=== PATIENT | female | born 1970 | race Native Hawaiian/Other Pacific Islander ===

== ENCOUNTER 2016-02-16 07:02 | Emergency (ER) | payer SELFPAY ==
--- NOTE | 2016-02-16 08:25 | Emergency Department Report ---
Upper Extremity - [facility] Chief Complaint: Extremity Injury, Upper Stated Complaint: LEFT SIDE NUMBNESS/ PAINFUL TO SWALLOW Time Seen by Provider: 02/16/16 08:11 ED Review of Systems ROS: Stated complaint: LEFT SIDE NUMBNESS/ PAINFUL TO SWALLOW Other details as noted in HPI ED Past Medical Hx - Past Medical History Hx Hypertension: No Hx Heart Attack/AMI: No Hx Diabetes: No Hx Liver Disease: No Hx Renal Disease: No Hx Seizures: No Hx Asthma: No Hx COPD: No Hx Tuberculosis: No Additional medical history: history of ectopic - Surgical History Hx Cholecystectomy: Yes Hx Appendectomy: Yes Additional Surgical History: salpingectomy. . tummy tuck. - Social History Smoking Status: Never Smoker Substance Use Type: None - Medications Home Medications: Home Medications Medication Instructions Recorded Confirmed Last Taken Type Ciprofloxacin HCl [Cipro] 500 mg PO Q12H #28 tab 07/09/13 Unknown Rx HYDROcodone/APAP 5-325 [[place] 1 each PO Q6HR PRN #14 tablet 07/09/13 Unknown Rx 5-325 mg TAB] Prednisone [Prednisone 10 mg 10 mg PO .TAPER #1 tab.ds.pk 07/09/13 Unknown Rx (6-Day Pack, 21 Tabs)] metroNIDAZOLE [Flagyl TAB] 500 mg PO Q8HR #42 tablet 07/09/13 Unknown Rx Upper Extremity Exam - Exam General: Vital signs noted. No distress. Alert and acting appropriately. ED Course Vital Signs 02/16/16 07:20 Temperature 98.3 F Pulse Rate 83 Blood Pressure 138/98 Critical care attestation.: If time is entered above; I have spent that time in minutes in the direct care of this critically ill patient, excluding procedure time. ED Disposition Condition: Stable
--- NOTE | 2016-02-16 08:32 | Emergency Department Report ---
HPI - General Chief Complaint: Extremity Injury, Upper Time Seen by Provider: 02/16/16 08:11 - HPI HPI: Patient is a 45-year-old female who presents to ED complaining of left sided neck and arm pain and tingling 2 days. Patient states 2 days ago she started experiencing pain on her left neck area and subxiphoid tingling on her left arm. Patient states pain is intermittent and is a throbbing type pain. Patient also complains of midsternal, nonradiating, 6 out of 10 intensity, stuck like feeling chest pain 1 day. Patient denies fevers/chills/nausea/vomiting/chest pain/shortness of breath/ abdominal pain. ED Past Medical Hx - Past Medical History Hx Hypertension: No Hx Heart Attack/AMI: No Hx Diabetes: No Hx Liver Disease: No Hx Renal Disease: No Hx Seizures: No Hx Asthma: No Hx COPD: No Hx Tuberculosis: No Additional medical history: history of ectopic - Surgical History Hx Cholecystectomy: Yes Hx Appendectomy: Yes Additional Surgical History: salpingectomy. . tummy tuck. - Social History Smoking Status: Never Smoker Substance Use Type: None - Medications Home Medications: Home Medications Medication Instructions Recorded Confirmed Last Taken Type Ciprofloxacin HCl [Cipro] 500 mg PO Q12H #28 tab 07/09/13 Unknown Rx HYDROcodone/APAP 5-325 [[place] 1 each PO Q6HR PRN #14 tablet 07/09/13 Unknown Rx 5-325 mg TAB] Prednisone [Prednisone 10 mg 10 mg PO .TAPER #1 tab.ds.pk 07/09/13 Unknown Rx (6-Day Pack, 21 Tabs)] metroNIDAZOLE [Flagyl TAB] 500 mg PO Q8HR #42 tablet 07/09/13 Unknown Rx Cyclobenzaprine [Flexeril] 10 mg PO TID PRN #20 tablet 02/16/16 Unknown Rx Ibuprofen [Motrin] 800 mg PO Q8HR PRN #30 tablet 02/16/16 Unknown Rx ED Review of Systems ROS: Stated complaint: LEFT SIDE NUMBNESS/ PAINFUL TO SWALLOW Other details as noted in HPI Constitutional: denies: chills, fever Eyes: denies: eye pain, eye discharge, vision change ENT: denies: ear pain, throat pain, dental pain, hearing loss, congestion Respiratory: denies: cough, shortness of breath, wheezing Cardiovascular: denies: chest pain, palpitations Endocrine: no symptoms reported Gastrointestinal: denies: abdominal pain, nausea, vomiting, diarrhea Genitourinary: denies: urgency, dysuria, discharge Musculoskeletal: myalgia. denies: back pain, joint swelling, arthralgia Skin: denies: rash, lesions Neurological: denies: headache, weakness, paresthesias, confusion, abnormal gait Psychiatric: denies: anxiety, depression Hematological/Lymphatic: denies: easy bleeding, easy bruising Physical Exam - Physical Exam Vital Signs: Vital Signs 02/16/16 07:20 Temperature 98.3 F Pulse Rate 83 Blood Pressure 138/98 General: Alert and oriented 3. Vital signs stable. Patient in no acute distress Physical Exam: GENERAL: Alert and oriented x3, no apparent distress, Normal Gait, atraumatic. HEAD: Head is normocephalic and a-traumatic. EYES: Extra ocular muscles are intact. Pupils are equal, round, and reactive to light and accommodation. EARS: symetrical, atraumatic, non tender, ear canal clear and moderate cerumen, tympanic membrance non inflamed. gross auditory nml bilaterally. NOSE: Nose symetrical, Nontender,Nares appeared normal. MOUTH:Mouth is well hydrated and without lesions. Tonsils nonerythematous or swollen, Uvula midline, Tongue not elevated. Mucous membranes are moist. Posterior pharynx clear, no exudate or lesions. Patent airways. NECK: Supple. Non edematous, No carotid bruits. No lymphadenopathy or thyromegaly. Full ROM, No c-spine tenderness LUNGS: Symetrical with respiration, No wheezing, no rales or crackles, CTAB. HEART: S1, S2 present, regular rate and rhythm without murmur, no rubs, no gallops. Tenderness to palpation of mid sternum. ABDOMEN: No organomegaly was noted,Positive bowel sounds, soft, and non- distended. . Nontender to palpation on all Quadrants, NO CVA tenderness. EXTREMITIES/MUSCULOSKELETAL: No cyanosis, clubbing, rash, lesions or edema. Full ROM bilaterally. UE/LE Pulses 2+ bilaterally. LE and UE 5+ strength bilaterally. Firm grasp bilaterally NEUROLOGIC: No focal Deficit, Cranial nerves II through XII are grossly intact. No loss of sensation, No facial droop, Sensory nerves intact, PSYCHIATRIC: Mood is congruent with affect, denies suicidal or homicidal ideations. SKIN: Warm and dry, No lesions, No ulceration or induration present. ED Course Vital Signs 02/16/16 07:20 Temperature 98.3 F Pulse Rate 83 Blood Pressure 138/98 ED Medical Decision Making - Lab Data Result diagrams: 02/16/16 10:16 02/16/16 10:16 - Medical Decision Making Patient 45-year-old female presents with neck pain. Vital signs stable patient in no acute distress ED course: Patient received 60 mg IM of Toradol. Patient reports taking no medication or no allergies to any medication. Discussed with patient follow-up with primary care physician as referred. Patient states she does not have a primary care physician. [id number] blood glucose, normal at 97. Chest x-ray ordered chest x-ray report shows normal study no cardiomegaly no acute injury. EKG ordered. EKG report shows normal sinus reading low voltage QRS otherwise normal. Cardiac enzymes normal, discussed with Dr. Talavera Discussed his new symptoms to return to ED. Discussed referral is given today and to follow up. Patient states verbally that she will follow-up. Discussed home medications ibuprofen and Flexeril. Critical care attestation.: If time is entered above; I have spent that time in minutes in the direct care of this critically ill patient, excluding procedure time. ED Disposition Clinical Impression: Neck ache, Cervical radicular pain, Nonspecific chest pain, Costochondral chest pain Disposition: DISCHARGED TO HOME OR SELFCARE Is pt being admited?: No Does the pt Need Aspirin: No Condition: Stable Instructions: Cervical Radiculopathy (ED), Musculoskeletal Pain (ED), Chest Pain (ED), Costochondritis (ED) Prescriptions: Cyclobenzaprine [Flexeril] 10 mg PO TID PRN #20 tablet PRN Reason: Muscle Spasm Ibuprofen [Motrin] 800 mg PO Q8HR PRN #30 tablet PRN Reason: Pain Referrals: PRIMARY CARE, [Primary Care Provider] - 3-5 Days [facility] [Outside] - 3-5 Days [facility] [Outside] - 3-5 Days [facility] [Outside] - 3-5 Days [facility] [Outside] - 3-5 Days [facility] [Outside] - 3-5 Days Forms: Work/School Release Form(ED) Time of Disposition: 11:03 Print Language: OCCITAN
[2016-02-16] MEDS ORDERED: TORADOL IM ONE (08:36)
[2016-02-16 10:26] LABS: Basophils % (Auto) 0.6 % (0.0-1.8); Eosinophils % (Auto) 2.1 % (0.0-4.3); Hemoglobin 15.7 gm/dl (10.1-14.3); Mean Corpuscular HGB Conc 34 % (30-34); Mean Corpuscular Hemoglobin 31 pg (28-32); Mean Corpuscular Volume 90 fl (79-97); Platelet Count 264 K/mm3 (140-440); Red Blood Count 5.12 M/mm3 (3.65-5.03); Red Cell Distribution Width 13.2 % (13.2-15.2); White Blood Count 7.8 K/mm3 (4.5-11.0)
--- NOTE | 2016-02-16 10:26 | XRay Report ---
ROUTINE CHEST, TWO VIEWS: PA and lateral views demonstrate the heart and mediastinal contour to be of normal size and shape. The lungs are clear and fully expanded and the soft tissues and bony structures are normal. No significant change compared to May 2011. IMPRESSION: Normal study.
[2016-02-16 10:41] LABS: Blood Urea Nitrogen 12 mg/dL (7-17); Calcium 9.7 mg/dL (8.4-10.2); Carbon Dioxide 26 mmol/L (22-30); Chloride 100.7 mmol/L (98-107); Creatine Kinase 56 units/L (30-135); Glucose 100 mg/dL (65-100); Potassium 4.2 mmol/L (3.6-5.0); Sodium 138 mmol/L (137-145)
[2016-02-16 10:43] VITALS: BP 139/88
[2016-02-16 10:44] LABS: Anion Gap 16 mmol/L
== END 2016-02-16 11:42 | disposition home or self-care (01) ==
LOC: ED 07:02
DX: M54.2 Cervicalgia (principal); M94.0 Chondrocostal junction syndrome [Tietze]; R07.9 Chest pain, unspecified; Z90.49 Acquired absence of other specified parts of digestive tract
CPT/HCPCS: 36415; 71020; 80048; 82550; 82962; 84484; 85025; 93005; 93010; 96372; 99284; J1885

== ENCOUNTER 2018-11-14 09:00 | Emergency (ER) | payer SELFPAY ==
[2018-11-14] MEDS ORDERED: MECLIZINE 25 MG TAB PO ONE (09:30)
[2018-11-14] MEDS ORDERED: ONDANSETRON 4 MG ODT TAB PO ONE (09:30)
--- NOTE | 2018-11-14 09:40 | Emergency Department Report ---
HPI - General Chief Complaint: Dizziness Time Seen by Provider: 11/14/18 09:13 - HPI HPI: Room 23 The patient is a 48-year-old female presenting with chief complaint of dizziness. The patient states past 3 days she's had a constant dizziness that waxes and wanes. Patient states the dizziness worsens whenever looking down or change in position. Denies any preceding trauma. Patient admits to supple headache. The patient says she checked her blood pressure home with ultrasound to be hypertensive with a systolic of 165. Patient missed and nausea but denies vomiting. Location: [See above] Duration: [See above] Quality: [See above] Severity: [See above] Timing: [See above] Context: [See above] Modifying factors: [See above] Associated signs and symptoms: [see above] ED Past Medical Hx - Past Medical History Previous Medical History?: Yes Hx Hypertension: Yes Additional medical history: history of ectopic , vertigo - Surgical History Past Surgical History?: Yes Hx Cholecystectomy: Yes Hx Appendectomy: Yes Additional Surgical History: salpingectomy. . amparo branch. - Family History Family history: no significant - Social History Smoking Status: Never Smoker Substance Use Type: None - Medications Home Medications: Home Medications Medication Instructions Recorded Confirmed Last Taken Type Losartan-Hctz 50-12.5 mg Tab 1 tab PO DAILY 12/21/17 10/06/18 10/06/18 History Aspirin [Aspirin BABY CHEW TAB] 1 mg PO QDAY 10/06/18 10/06/18 10/06/18 History Meclizine HCl [Meclizine CHEW] 25 mg PO Q8HR PRN 10 Days #30 10/06/18 Unknown Rx tab.chew Meclizine [Antivert] 25 mg PO QID PRN #20 tablet 11/14/18 Unknown Rx Ondansetron [Zofran ODT TAB] 8 mg PO Q8HR #20 tab.rapdis 11/14/18 Unknown Rx ED Review of Systems ROS: Stated complaint: HTN/DIZZINESS Other details as noted in HPI Constitutional: denies: fever Eyes: denies: eye pain ENT: denies: throat pain Respiratory: no symptoms reported Cardiovascular: denies: chest pain Endocrine: no symptoms reported Gastrointestinal: nausea. denies: vomiting Genitourinary: denies: dysuria Neurological: headache, vertigo Physical Exam - Physical Exam Vital Signs: Vital Signs 11/14/18 11/14/18 11/14/18 09:04 09:08 09:16 Temperature 98.8 F Pulse Rate 91 H 91 H 93 H Respiratory 12 20 15 Rate Blood Pressure 142/89 142/89 O2 Sat by Pulse 96 97 Oximetry 11/14/18 09:19 Temperature Pulse Rate Respiratory 20 Rate Blood Pressure O2 Sat by Pulse 96 Oximetry Physical Exam: GENERAL: The patient is well-developed well-nourished []. [] HEENT: Normocephalic. Atraumatic. Extraocular motions are intact. Patient has moist mucous membranes. No nystagmus NECK: Supple. Trachea midline CHEST/LUNGS: Clear to auscultation. There is no respiratory distress noted. HEART/CARDIOVASCULAR: Regular. There is no tachycardia. There is no gallop rub or murmur. ABDOMEN: Abdomen is soft, nontender. Patient has normal bowel sounds. There is no abdominal distention. SKIN: There is no rash. There is no edema. There is no diaphoresis. NEURO: The patient is awake, alert, and oriented. The patient is cooperative. The patient has no focal neurologic deficits. The patient has normal speech. Cranial nerves II through XII grossly intact, no drift. No dysmetria noted with [id number] bilaterally MUSCULOSKELETAL: There is no evidence of acute injury. ED Course Vital Signs 11/14/18 11/14/18 11/14/18 09:04 09:08 09:16 Temperature 98.8 F Pulse Rate 91 H 91 H 93 H Respiratory 12 20 15 Rate Blood Pressure 142/89 142/89 O2 Sat by Pulse 96 97 Oximetry 11/14/18 09:19 Temperature Pulse Rate Respiratory 20 Rate Blood Pressure O2 Sat by Pulse 96 Oximetry ED Medical Decision Making - Lab Data Result diagrams: 11/14/18 09:40 11/14/18 09:40 Laboratory Tests 11/14/18 11/14/18 11/14/18 09:40 09:40 09:40 WBC 10.2 RBC 4.81 Hgb 14.9 H Hct 43.2 H MCV 90 MCH 31 MCHC 34 RDW 13.7 Plt Count 268 Lymph % (Auto) 16.1 [place] % (Auto) 6.9 Eos % (Auto) 1.0 Baso % (Auto) 0.6 Lymph # 1.6 [place] # 0.7 Eos # 0.1 Baso # 0.1 Seg Neutrophils % 75.4 H Seg Neutrophils # 7.7 Sodium 141 Potassium 3.7 Chloride 103.9 Carbon Dioxide 22 Anion Gap 19 BUN 15 Creatinine 0.6 L Estimated GFR > 60 BUN/Creatinine Ratio 25 Glucose 109 H Calcium 9.3 Magnesium 2.00 Total Creatine Kinase 61 CK-MB (CK-2) 1.4 CK-MB (CK-2) Rel Index 2.2 Troponin T < 0.010 TSH 1.190 Free T4 1.08 - EKG Data -: EKG Interpreted by Me EKG shows normal: sinus rhythm Rate: normal - EKG Data When compared to previous EKG there are: previous EKG unavailable Interpretation: nonspecific ST-T wave leigh (T-wave inversion in lead 3) - Radiology Data Radiology results: report reviewed (CT head), image reviewed (CT head) [place] [address] Cat Scan Report Signed Patient: BAO GAY MR#: [id number] : 1970 Acct:[id number] Age/Sex: 48 / F ADM Date: 11/14/18 Loc: ED Attending Dr: Ordering Physician: ELIZABETH PETERSON MD Date of Service: 11/14/18 Procedure(s): CT head/brain wo con Accession Number(s): [id number] cc: ELIZABETH PETERSON MD CT head without contrast CLINICAL HISTORY: Dizziness for one day. FINDINGS: There appear to be a continued a mild paravertebral white matter changes most consistent with microvascular angiopathy. The findings correlate with the previous CT of 10/06/2018. There is no clear CT ends of acute intracranial hemorrhage or s ignificant mass effect. The ventricular system remains unchanged in size and configuration. The visualized nasal sinuses are clear. All CT scans at this location are performed using the CT dose reduction for ALARA by means of automated exposure control. IMPRESSION: There is no CT evidence of acute i ntracranial process. Signer Name: Isaiah Cheatham MD Signed: 11/14/2018 11:03 AM Workstation Name: [id number] Transcribed By: MR Dictated By: Isaiah Cheatham MD Electronically Authenticated By: Isaiah Cheatham MD Signed Date/Time: 11/14/18 1103 DD/ 1059 TD/TT: - Differential Diagnosis vertigo, ICH, intracranial mass Critical care attestation.: If time is entered above; I have spent that time in minutes in the direct care of this critically ill patient, excluding procedure time. ED Disposition Clinical Impression: Vertigo Disposition: DC-01 TO HOME OR SELFCARE Is pt being admited?: No Does the pt Need Aspirin: No Condition: Stable Instructions: Vertigo (ED) Additional Instructions: Return to the emergency department should you develop worsening symptoms, inability to tolerate food or liquids, high fever or any other concerns Prescriptions: Meclizine [Antivert] 25 mg PO QID PRN #20 tablet PRN Reason: Vertigo Ondansetron [Zofran ODT TAB] 8 mg PO Q8HR #20 tab.rapdis Referrals: PRIMARY CARE,MD [Primary Care Provider] - 3-5 Days ZAKI CRAMER MD [Staff Physician] - 3-5 Days (Dr. Cramer is a neurologist. Please follow up with him for further evaluation) Time of Disposition: 13:05
[2018-11-14 09:51] LABS: Basophils # (Auto) 0.1 K/mm3 (0.0-0.1); Basophils % (Auto) 0.6 % (0.0-1.8); Eosinophils # (Auto) 0.1 K/mm3 (0.0-0.4); Hematocrit 43.2 % (30.3-42.9); Hemoglobin 14.9 gm/dl (10.1-14.3); Lymphocytes # (Auto) 1.6 K/mm3 (1.2-5.4); Lymphocytes % (Auto) 16.1 % (13.4-35.0); Mean Corpuscular HGB Conc 34 % (30-34); Mean Corpuscular Volume 90 fl (79-97); Monocytes # (Auto) 0.7 K/mm3 (0.0-0.8); Monocytes % (Auto) 6.9 % (0.0-7.3); Platelet Count 268 K/mm3 (140-440); Red Blood Count 4.81 M/mm3 (3.65-5.03); Red Cell Distribution Width 13.7 % (13.2-15.2)
[2018-11-14 10:18] LABS: Creatine Kinase MB 1.4 ng/mL (0.0-4.0)
[2018-11-14 10:20] LABS: BUN/Creatinine Ratio 25; Blood Urea Nitrogen 15 mg/dL (7-17); Calcium 9.3 mg/dL (8.4-10.2); Hemolysis Index 11
[2018-11-14 10:24] LABS: Free T4 (Free Thyroxine) 1.08 ng/dL (0.76-1.46)
--- NOTE | 2018-11-14 11:07 | Cat Scan Report ---
CT head without contrast CLINICAL HISTORY: Dizziness for one day. FINDINGS: There appear to be a continued a mild paravertebral white matter changes most consistent wi th microvascular angiopathy. The findings correlate with the previous CT of 10/06/2018. There is no cl ear CT ends of acute intracranial hemorrhage or significant mass effect. The ventricular system remai ns unchanged in size and configuration. The visualized nasal sinuses are clear. All CT scans at this location are performed using the CT dose reduction for ALARA by means of automated exposure control. IMPRESSION: There is no CT evidence of acute intracranial process. Signer Name: Isaiah Cheatham MD Signed: 11/14/2018 11:03 AM Workstation Name: [id number]
[2018-11-14] MEDS ORDERED: LORazepam 2 MG/ML VIAL IV ONE (11:53)
[2018-11-14 12:05] VITALS: BP 142/78
== END 2018-11-14 13:18 | disposition home or self-care (01) ==
LOC: ED 09:00
DX: R42 Dizziness and giddiness (principal); I10 Essential (primary) hypertension; Z90.49 Acquired absence of other specified parts of digestive tract; Z79.899 Other long term (current) drug therapy
CPT/HCPCS: 36415; 70450; 80048; 82550; 82553; 83735; 84439; 84443; 84484; 85025; 93005; 93010; 99284; J2060; Q0162

== ENCOUNTER 2019-02-17 10:53 | Emergency (ER) | payer SELFPAY ==
[2019-02-17] MEDS ORDERED: ASPIRIN 325 MG TAB PO ONE (11:05)
--- NOTE | 2019-02-17 11:28 | XRay Report ---
CHEST 1 VIEW 11:23 AM INDICATION / CLINICAL INFORMATION: Chest pain and dizziness since 7:00 AM today. Midsternal pressure with associated dyspnea. COMPARISON: 10/06/2018. FINDINGS: SUPPORT DEVICES: None. HEART / MEDIASTINUM: The heart size and pulmonary vasculature are normal. The aorta is normal in jeremy george. LUNGS / PLEURA: No significant pulmonary or pleural abnormality. No pneumothorax. ADDITIONAL FINDINGS: No significant additional findings. IMPRESSION: No acute abnormality or significant change. Signer Name: Rosalino Peterson MD Signed: 02/17/2019 11:24 AM Workstation Name: [id number]
[2019-02-17 12:45] LABS: Basophils # (Auto) 0.1 K/mm3 (0.0-0.1); Basophils % (Auto) 1.1 % (0.0-1.8); Eosinophils # (Auto) 0.1 K/mm3 (0.0-0.4); Eosinophils % (Auto) 1.1 % (0.0-4.3); Hematocrit 47.9 % (30.3-42.9); Hemoglobin 16.1 gm/dl (10.1-14.3); Lymphocytes # (Auto) 1.9 K/mm3 (1.2-5.4); Lymphocytes % (Auto) 20.2 % (13.4-35.0); Mean Corpuscular HGB Conc 34 % (30-34); Mean Corpuscular Volume 92 fl (79-97); Monocytes # (Auto) 0.6 K/mm3 (0.0-0.8); Monocytes % (Auto) 5.7 % (0.0-7.3); Platelet Count 273 K/mm3 (140-440); Red Blood Count 5.19 M/mm3 (3.65-5.03); Red Cell Distribution Width 13.4 % (13.2-15.2)
[2019-02-17 12:49] VITALS: BP 134/84
[2019-02-17 13:01] LABS: BUN/Creatinine Ratio 22; Blood Urea Nitrogen 11 mg/dL (7-17); Calcium 9.6 mg/dL (8.4-10.2); Hemolysis Index 15
== END 2019-02-17 11:10 | disposition left against medical advice (07) ==
LOC: ED 10:53
DX: R07.89 Other chest pain (principal); Z53.21 Procedure and treatment not carried out due to patient leaving prior to being seen by health care provider
CPT/HCPCS: 36415; 71045; 80048; 84484; 85025; 93005; 93010

== ENCOUNTER 2019-09-02 18:38 | Emergency (ER) | payer SELFPAY ==
[2019-09-02 18:57] VITALS: BP 106/78
== END 2019-09-02 19:06 | disposition left against medical advice (07) ==
LOC: ED 18:38
DX: E16.2 Hypoglycemia, unspecified (principal); Z53.21 Procedure and treatment not carried out due to patient leaving prior to being seen by health care provider